=== PATIENT | male | born 1970 | race Caucasian/White ===

== ENCOUNTER 2023-10-27 14:18 | Outpatient (CLI) | payer OTHER, SELFPAY ==
--- NOTE | 2023-10-31 14:38 | WPDPFTINT ---
PFT Procedure Performed PFT Procedure Performed Plethysmography (Lung Vol) Diffusing Cap (DLCO) Flow Vol Loop Spirometry w/o Bronchodil PFT Interpretation Lung volumes were measured with the body plethysmography method. Lung volumes are unremarkable. Spirometry showed normal expiratory flow rates and a normal FEV1 to FVC ratio 79%. No post bronchodilator study was conducted. Lung diffusion capacity is mildly reduced at 67% predicted. The flow-volume loop is unremarkable. Impression: Spirometry, lung volumes within normal range. Mild reduction in lung diffusion capacity.
== END 2023-10-27 14:19 | disposition home or self-care (01) ==
LOC: ANHPFT 14:19
PROVIDERS: PCP Family Medicine; Visit Provider Internal Medicine
DX: R06.00 Dyspnea, unspecified (principal)
CPT/HCPCS: 94375; 94726; 94729

== ENCOUNTER 2023-11-17 14:40 | Outpatient (CLI) | payer OTHER, SELFPAY ==
--- NOTE | 2023-11-17 | ECHO_ITS ---
Patient Info Name: Primitivo Sharma Age: 53 years : 1970 Gender: Male Ht: 71 in Wt: 230 lbs BSA: 2.32 m2 HR: 60 bpm BP: 102 / 85 mmHg Heart Rhythm: Sinus Rhythm Technical Quality: Good Exam Date: 11/17/2023 3:11 PM Exam Location: Echo Lab Patient Status: Outpatient Admit Date: 11/17/2023 Staff Ordering Physician: RustamBulmaro MD Oral And Maxillofacial Pathologist: David Alaniz RDCS Attending Provider: RustamBulmaro MD Exam Type: CA echo doppler color flow Study Info Indications - atheroschoratic heart disease Complete two-dimensional, color flow and Doppler transthoracic echocardiogram is performed. Summary 1. Complete two-dimensional, color flow and Doppler transthoracic echocardiogram is performed. 2. Left ventricular chamber dimension is normal. 3. Left ventricular systolic function is normal, estimated at 60-65%. 4. The left ventricular diastolic function is grade I diastolic dysfunction. 5. E/e' 8 is minimally elevated. 6. There is mild aortic valve sclerosis. 7. There is trace tricuspid valve regurgitation. 8. No pulmonary hypertension, estimated pulmonary arterial systolic pressure is 14 mmHg. Left Ventricle E/e' 8 is minimally elevated. Left ventricular chamber dimension is normal. Left ventricular systolic function is normal, estimated at 60-65%. The left ventricular diastolic function is grade I diastolic dysfunction. Right Ventricle Right ventricular systolic function is normal and with normal TAPSE 2.4 cm. Right ventricular chamber dimension is normal. Left Atria Left atrial chamber dimension is normal. Right Atria Right atrial chamber dimension is normal. Aortic Valve The aortic valve is trileaflet. There is mild aortic valve sclerosis. There is no aortic valve stenosis. There is no aortic valve regurgitation. Pulmonic Valve There is no pulmonic regurgitation. Mitral Valve There is no mitral valve stenosis. There is no mitral valve regurgitation. Tricuspid Valve There is trace tricuspid valve regurgitation. No pulmonary hypertension, estimated pulmonary arterial systolic pressure is 14 mmHg. Pericardium/Pleural There is no pericardial effusion. Inferior Vena Cava Normal inferior vena cava with >50% collapse upon inspiration consistent with normal right atrial pressure, 5 mmHg. Aorta The aortic root size at the sinus of Valsalva is normal. Left Ventricular Outflow Tract Name Value Normal LVOT 2D LVOT Diameter 2.1 cm LVOT Doppler LVOT Peak Gradient 5 mmHg LVOT Mean Gradient 3 mmHg LVOT VTI 24 cm LVOT VTI/AV VTI Ratio 1.0 LVOT Stroke Volume 85 ml LVOT CO 5.6 l/min LVOT CI 2.4 l/min/m2 Pulmonic Valve Name Value Normal PV Doppler PV Peak Gradient 3 mmHg Mitral Valve
== END 2023-11-17 14:41 | disposition home or self-care (01) ==
LOC: ANHCARD 14:41
PROVIDERS: PCP Family Medicine; Visit Provider Internal Medicine
DX: I25.10 Atherosclerotic heart disease of native coronary artery without angina pectoris (principal); I50.30 Unspecified diastolic (congestive) heart failure; I35.8 Other nonrheumatic aortic valve disorders
CPT/HCPCS: 93306

== ENCOUNTER 2024-01-22 09:17 | Outpatient (CLI) | payer OTHER, SELFPAY ==
[2024-01-22 10:24] LABS: Basophils Absolute Auto 0.1 K/mm3 (0.0-0.1); Basophils Percent Auto 0.5 % (0.2-1.2); Eosinophils Absolute Auto 0.2 K/mm3 (0-0.3); Eosinophils Percent Auto 1.7 % (0-4.4); Hematocrit 42.8 % (42.0-52.0); Hemoglobin 14.5 g/dL (14.0-18.0); Immature Granulocyte Absolute 0.04 K/mm3 (0.00-0.031); Immature Granulocyte Percent A 0.4 % (0-0.5); Lymphocytes Absolute Auto 2.25 K/mm3 (0.9-3.2); Lymphocytes Percent Auto 20.5 % (18.3-44.2); Mean Corpuscular HGB Conc 33.9 g/dl (32-36); Mean Corpuscular Hemoglobin 31.8 pg (26-34); Mean Corpuscular Volume 93.9 fl (80-100); Mean Platelet Volume 9.8 fl (7.4-10.4); Monocytes Absolute Auto 0.8 K/mm3 (0.1-0.6); Monocytes Percent Auto 7.1 % (2.6-8.5); Neutrophils Absolute Auto 7.7 K/mm3 (1.3-6.7); Neutrophils Percent Auto 69.8 % (45.5-73.1); Platelet Count Result 281 k/mm3 (150-375); Red Blood Count 4.56 M/mm3 (4.6-6.20); Red Cell Distribution Width 14.4 % (11.5-14.5)
[2024-01-22 10:35] LABS: INR 0.9; Prothrombin Time 13.1 Seconds (11.1-14.7)
[2024-01-22 10:43] LABS: Anion Gap 5 mmol/L (4-12); Blood Urea Nitrogen 9 mg/dL (9-20); Calcium 9.1 mg/dL (8.4-10.2); Carbon Dioxide 22 mmol/L (22-30); Chloride 110 mmol/L (98-107); Cholesterol 98 mg/dL (0-200); Estimated Glomerular Filt Rate > 60; Glucose 129 mg/dL (65-110); HDL Direct 25 mg/dL; Potassium 4.6 mmol/L (3.4-5.0); Sodium 137 mmol/L (137-145); Triglycerides 113 mg/dL (<150)
[2024-01-22 10:54] LABS: LDL Cholesterol Direct 50 mg/dL
== END 2024-01-22 09:18 | disposition home or self-care (01) ==
LOC: ANHLAB 09:19
PROVIDERS: PCP Family Medicine; Visit Provider Internal Medicine Cardiovascular Disease
DX: R53.83 Other fatigue (principal); E78.5 Hyperlipidemia, unspecified; I50.9 Heart failure, unspecified; I21.3 ST elevation (STEMI) myocardial infarction of unspecified site; Z13.6 Encounter for screening for cardiovascular disorders
CPT/HCPCS: 36415; 80048; 80061; 85025; 85610

== ENCOUNTER 2024-07-05 14:12 | Outpatient (CLI) | payer BC, OTHER, SELFPAY ==
--- NOTE | ~2024-07-05 | XR_ITS ---
EXAM: XR knee LT 3V DATE: 07/05/2024 14:40 HISTORY: Left knee pain, unspecified chronicity . COMPARISON: None available. FINDINGS: Normal mineralization. No fracture or dislocation. No lytic or blastic lesion. Mild medial joint space narrowing. Mild tricompartmental osteophytosis. Chondrocalcinosis. Mild quadriceps and p atellar enthesopathy. No erosion or periosteal change. Scattered vascular calcifications. Soft tissue thickening over the patellar tendon, with indistinct tendon margins. IMPRESSION: Mild tricompartmental left knee arthritis, with chondrocalcinosis. Prepatellar soft tissu e swelling and/or patellar tendinopathy. Reviewed, dictated and finalized at location K. IMPRESSION: Mild tricompartmental left knee arthritis, with chondrocalcinosis. Prepatellar soft tissue swelling and/or patellar tendinopathy.
--- OUTSIDE RECORDS SUMMARY | 2024-07-05 14:20 | XMS_ITS | Clinical Summary ---
Author Organization [facility] Address [address] [place] [address] Care Team Providers Care Back Up Machine Operator Name Role Phone Bulmaro Easton MD Primary Care Provider [phone] Social History Tobacco Use Types Packs/Day Years Used Date Smoking Tobacco: Never Assessed Sex and Gender Information Value Date Recorded Sex Assigned at Not on file Legal Sex Male 3:52 PM CDT Gender Identity Not on file Sexual Orientation Not on file Plan of Treatment Health Maintenance Due Date Last Done Comments ASCVD LDL 1970 ASCVD Statin 1970 Colorectal Cancer Screening Colonoscopy (10 Years) 1970 Annual Physical 1973 Hepatitis C 1988 DTaP, Tdap and Td Vaccines ( 1 - Tdap) 1989 Hepatitis B Vaccines (1 of 3 - 19+ 3-dose series) 1989 Pneumococcal Vaccine: 50+ Ye ars (1 of 2 - PCV) 1989 Zoster Vaccines (1 of 2) 2020 COVID-19 Vaccine (2023-2 5 season) 2023 Meningococcal B Vaccine Aged Out No l onger eligible based on patient's age to complete this topic Meningococcal Vaccine Aged Out No ying selena eligible based on patient's age to complete this topic RSV Immunizations Under 20 Months Aged Out No longer eligible based on patient's age to complete this topic Insurance [facility] Care Teams Back Up Machine Operator Relationship Specialty Start Date End Date Bulmaro Easton MD [address] [place] [id number] PCP - General INTERNAL MEDICINE 09/18/23
--- OUTSIDE RECORDS SUMMARY | 2024-07-05 14:20 | XMS_ITS | Continuity of Care Document ---
Author Organization [facility] Address [address] [place] [address] Phone Care Team Providers Care Drywall Taper Name Role Phone Sasha Burt MD Unavailable Unavailable Advance Directives Directive Yes / No Effective Date File Name No Information Encounters Encounter Description Practice Location Reason(s) For Visit Diagnoses Date Provider Providers Copied on Encounter [facility], [address], [place], [place], [id number], tel:[phone] GI SCOPES No Information Javed Baez. [address] [place] [address], [id number], . tel:[phone] Referring Provider: Zac Ray, [address] [place] [address], [place], [address]. tel:[phone] Family History Family Member Type Diagnosis Age At Onset No Information Payers Payer name Insurance type Covered republican ID Authoriza tijose a(s) BCBS INACTIVE OUT OF STATE [id number] 1 Social History Type Description Quantity Date [...]
--- OUTSIDE RECORDS SUMMARY | 2024-07-05 14:20 | XMS_ITS | CONTINUITY OF CARE DOCUMENT ---
Author Name roly biasiena Address Unknown Organization [facility] Address [address] [place] [address] Phone [phone] Care Team Providers Care Insurance Healthcare Consultant Name Role Phone Mikael Brooks MD Unavailable [phone] HONORIO GOMEZ MD Unavailable HONORIO GOMEZ MD Unavailable [phone] PROBLEMS Condition Status Date Provider Notes Cardiology examination active Mikael Louie Shortness of breath active Mikael Brooks MD CHF active Mikael Brooks MD Hx of [place] active Mikael Brooks MD Dyslipidemia active Joey Garciabach Fatigue active Mikael Brooks MD CAD active Mikael Brooks MD ENCOUNTERS Date Type Provider Location Encounter Diag nosis - In-person encounter Office Visit Mikael Brooks MD [facility] CAD - In-person encounter Office Visit Mikael Brooks MD [facility] Fatigue - In-person encounter Office Visit Mikael Brooks MD [facility] Dyslipidemia - In-person encounter Office Visit Mikael Brooks MD [facility] Cardiology examinationShortness of breathCHFHx of [place] VITAL SIGNS Date Observation Value Provider Body Mass Index (Ratio) 31.80 kg/m2 Mikael Brooks MD blood pressure, diastolic 72 mm[Hg] An iyah [place] blood pressure, systolic 90 mm[Hg] Ami guerra [place] oxygen saturation, oximetry 96 % Kitty [place] pulse rate 76 /min Kitty [place] respiratory rate E&M 12 /min Kitty [place] weight E&M 228 [lb_av] Kitty [place] height E&M 71 [in_i] Kitty [place] blood pressure, cuff size regular Jacy guaman [place] Body Mass Index (Ratio) 32.21 kg/m2 Sam Mccarthy blood pressure, diastolic 71 mm[Hg] Caden calla [facility] blood pressure, systolic 91 mm[Hg] [facility]ol [facility], oximetry 97 % Ailin [facility] pulse rate 87 /min [facility] weight E&M 231 [lb_av] Ailin [facility] height E&M 71 [in_i] Ailin [facility] blood pressure, diastolic 68 mm[Hg] Caden yla [facility] blood pressure, systolic 102 mm[Hg] Karol la [facility] blood pressure, cuff size regular Caden roque [facility] oxygen saturation, oximetry 98 % Ailin [facility] pulse rate 72 /min Ailin [facility] height E&M 71 [in_i] Ailin [facility] Body Mass Index (Ratio) 31.94 kg/m2 Artem rey Nachse blood pressure, diastolic 58 mm[Hg] Kalani [facility] blood pressure, systolic 102 mm[Hg] Nancy [employer] weight E&M 229 [lb_av] Lady Torrez pulse rate 84 /min Lady Torrez oxygen saturation, oximetry 97 % Lady Torrez blood pressure, cuff size regular Delfino Torrez blood pressure, diastolic 58 mm[Hg] Delfino Torrez blood pressure, systolic 102 mm[Hg] Marcelo Torrez height E&M 71 [in_i] Lady Torrez respiratory rate E&M 12 /min Lady Torrez ALLERGIES No Known Drug Allergies HISTORY OF MEDICATION USE Medication Status Instructions Dates Provider Indications Com ments ezetimibe 10 mg tablet active TAKE 1 TABLET BY MOUTH EVERY DAY 9 Kitty Richards metoprolol succinate 25 mg tablet extended release 24 hr active TAKE 1 TABLET BY MOUTH EVERY DAY 5 Mikael Brooks MD Entresto 24-26 mg tablet active Take 1 tablet by mouth twice a day 5 Mikael Brooks MD Entresto 49-51 mg tablet completed - 5 Mikael Brooks MD ezetimibe 10 mg tablet completed - 9 Kitty Richards pantoprazole 40 mg tablet,delayed release (DR/EC) active Lady Torrez metoprolol succinate 50 mg tablet extended release 24 hr completed TAKE 1 TABLET BY MOUTH EVERY DAY - 5 Mikael Brooks MD albuterol sulfate 90 mcg/actuation HFA aerosol inhaler active Lady Torrez gabapentin 300 mg capsule active TAKE ONE CAPSULE BY MOUTH THREE TIMES DAILY Lady Torrez clopidogrel 75 mg tablet active Lady Torrez atorvastatin 80 mg tablet active Lady Torrez FUNCTIONAL STATUS Date Observation Value Provider HRA, CV Assess/Plan, Angina (inactive) Management Plan continue current therapy Mikael Brooks MD HRA, CV Assess/Plan, Angina (inactive) Management Plan schedule PCI Mikael Brooks MD HRA, CV Assess/Plan, Angina (inactive) Management Plan continue current therapy Joey Mccarthy HRA, CV Assess/Plan, Angina (inactive) Management Plan continue current therapy Mikael Brooks MD INSURANCE PROVIDERS Payer name Policy type / Coverage type Price red constitution party ID [place] [employer] Commercial insurance [facility] [id number] ADVANCE DIRECTIVES Name Date DISCUSSED - NO DECISION MADE TREATMENT PLAN Date Name Performer Cardiology:This visi t has been a part of the consistent, comprehensive, and ongoing management of the chronic medical condition(s) listed above for the patient. His updated medication list for this problem includes: Ezetimibe 10 Mg Tablet (Ezetimibe) Atorvastatin 80 Mg Tablet (Atorvastatin) Mikael Brooks MD Cardiology:EF normal from Cath The following medications were removed from the medication list: Metoprolol Succinate 50 Mg Tablet Extended Release 24 Hr (Metoprolol succinate) ..... Take 1 tablet by mouth every day His updated medication list for this problem includes: Metoprolol Succinate 25 Mg Tablet Extended Release 24 Hr (Metoprolol succinate) ..... Take 1 tablet by mouth every day Clopidogrel 75 Mg Tablet (Clopidogrel) Mikael Brooks MD Cardiology: T he following medications were removed from the medication list: Metoprolol Succinate 50 Mg Tablet Extended Release 24 Hr (Metoprolol succinate) ..... Take 1 tablet by mouth every day His updated medication list for this problem includes: Metoprolol Succinate 25 Mg Tablet Extended Release 24 Hr (Metoprolol succinate) ..... Take 1 tablet by mouth every day Mikael Brooks MD Cardiology:Diagnosti c angio in Jan 2024 showed significant ISR of previously stented left circ, s/p successful stenting of left circ in Feb 2024. He is feeling much better since the stent and denies any SOB or SOB. T his visit has been a part of the consistent, comprehensive, and ongoing management of the chronic medical condition(s) listed above for the patient. Mikael Brooks MD Cardiology:His updat ed medication list for this problem includes: Metoprolol Succinate 50 Mg Tablet Extended Release 24 Hr (Metoprolol succinate) ..... Take 1 tablet by mouth every day Clopidogrel 75 Mg Tablet (Clopidogrel) Pt still experiencing SOB on exertion. Most recent Echo showed normal LVEF with evidence of diastolic dysfunction Joey Mccarthy Cardiology: H is updated medication list for this problem includes: Ezetimibe 10 Mg Tablet (Ezetimibe) Atorvastatin 80 Mg Tablet (Atorvastatin) This visit has been a part of the consistent, comprehensive, and ongoing management of the chronic medical condition(s) listed above for the patient. Joey Fabio Cardiology:Pt contin ues to complain of SOB. also reports feeling fatigued and sluggish. Most recent stress test showed abnormal imaging in the apical region with a mild perfusion defect, which is small in size, and has complete reversibility and abnormal imaging in the mid inferolateral region with a moderate perfusion defect, which is small in size, and appears with partial reversibility. In view of findings, we will proceed with l+R Heart cath with possible intervention The risks and benefits of the procedure, including but not limited the risk of heart attack, , stroke, bleeding, kidney failure, and loss of limb as well as the alternative of continued medical therapy, stress testing or bypass surgery were discussed with the patient and any present family members and the patient wishes to proceed with cardiac cath and stenting. The patient and family had opportunity to discuss this with us. Written material including informed consent was given out. Joey Fabio Cardiology: H is updated medication list for this problem includes: Ezetimibe 10 Mg Tablet (Ezetimibe) Atorvastatin 80 Mg Tablet (Atorvastatin) Joey Mccarthy Cardiology:Pt still experiencing SOB on exertion PFTs were normal.. Echo showed evidence of diastolic dysfunction. obtain stress test Joey Mccarthy Cardiology:Pt still experiencing SOB on exertion. Most recent Echo showed normal LVEF with evidence of diastolic dysfunction Joey Mccarthy Cardiology: H is updated medication list for this problem includes: Metoprolol Succinate 100 Mg Tablet Extended Release 24 Hr (Metoprolol succinate) Clopidogrel 75 Mg Tablet (Clopidogrel) Mikael Brooks MD Cardiology:Is schedu led for a stress test and Echo at [facility]. W ill f/u after this testing. His updated medication list for this problem includes: Metoprolol Succinate 100 Mg Tablet Extended Release 24 Hr (Metoprolol succinate) Mikael Brooks MD Date Name PROTHROMBIN TIME WIT H INR LIPID PANEL CBC (INCLUDES DIFF/P LT) BASIC METABOLIC PANE L W/EGFR myocardial blood ethan w (PET) Stress Cardiac PET-C T HISTORY OF PROCEDURES Procedure Date Procedure Name Provider Procedure Notes S tatus Complex e/m visit add on Mikael Brooks MD completed Complex e/m visit add on Mikael Brooks MD completed EKG Mikael Brooks MD completed
--- OUTSIDE RECORDS SUMMARY | 2024-07-05 14:20 | XMS_ITS | Data Portability ---
Author Organization [facility] JOSEPHPetty Charles Address [address] [facility] [place] [address] Care Team Providers Care Stock Speculator Name Role Phone HONORIO EASTON Primary Care Provider Assessment Encounter Date Assessment Date Assessment LastModified by Organization Details LastModified Time 08/26/2023 08/26/2023 obtain old records. No change in medications at this time. Obtain CBC CMP lipid PSA lipoprotein a level we will get him seen by Cardiology to establish care in this area PFT's LDCT complete echo we will empirically start albuterol inhaler 2 puffs q.4 hours p.r.n. he states that before when he had his heart attack and stent his angina pattern was left sided neck pain in his left arm went numb his breathing was fine. We will see me back in 3 months [email or web address] Not available 08/31/2023 16:48:58 11/26/2023 11/26/2023 he is working up the cardiopulmonary issues with his line walker. His blood pressure looks well controlled last blood work was reviewed echo and pulmonary function test reviewed quitting tobacco care instructions. Healthy lifestyle care instructions. Return to clinic in 4 months. We will try to get him a colonoscopy once he is cleared by Cardiology [email or web address] Not available 11/29/2023 11:23:01 05/12/2024 05/12/2024 Was continue current therapy healthy lifestyle care instructions last blood work reviewed refuses Prevnar 20 and Tdap colonoscopy can not be done until after July 2024 because of recent stent deployment in his heart and anticoagulation Not available 05/30/2024 13:14:57 Plan of Treatment Reminders Order Date Submit Date Provider Last Modified By Organization Details Last Modified Time Details Appointments ANY 15 2024 10:00A Mariano Easton MD Not available Not available Not available Lab PSA, total, serum or plasma 2023 024 [facility], [address] [place] [address], [place], [address], 08/27/2023 17:10:15 lipoprote in a, qn, serum 2023 024 [facility], [address] [place] [address], [place], [address], 08/27/2023 17:10:12 CMP, serum or plasma 2023 024 [facility], [address] [place] [address], [place], [address], 08/27/2023 17:10:14 lipid panel, serum 2023 024 [facility], [address] [place] [address], [place], [address], 08/27/2023 17:10:13 CBC w/ auto diff 2023 024 [facility], [address] [place] [address], [place], [address], 08/27/2023 17:10:15 Referral cardiolog ist referral 2023 024 [place], [id number] [address] , [facility] [address], [place], [address], 03/31/2024 09:22:28 Procedures None recorded. Surgeries None recorded. Imaging LDCT, chest, for lung cancer screening 2023 024 [facility] (Imaging), [address] [place] [address], [phone], 03/24/2024 10:33:29 US, echocardi ogram 2023 024 [facility] (Imaging), [address] [place] [address], [phone], 11/17/2023 18:31:47 PFT, complete 2023 024 [facility] (Cardiology & Emg), [address], [place], [phone], 10/31/2023 16:06:55 Medication Orders albuterol sulfate HFA 90 mcg/actua tion aerosol inhaler 2023 024 [email or web address] [id number], [address], [place], [place], [id number], 08/26/2023 17:27:24 Patient TargetsNo targets recorded. Patient Instructions Encounter Date Encounter Id Patient Instructions Last Modified By Organization Details Last Modified Time 11/26/2023 [id number] A healthy lifestyle: care instructions [email or web address] Not available 11/26/2023 17:29:31 Quitting Tobacco : Care Instructions [email or web address] Not available 11/26/2023 17:29:31 05/12/2024 [id number] A healthy lifestyle: care instructions [email or web address] Not available 05/12/2024 17:47:19 Reason for Referral Cone Picker Referral for Co ronary atherosclerosis Referring Physician: Honorio Easton, Internal Medicine, Encounter Date: 08/26/2023 Results Created Date Observation Date Name Description Value Unit Range Abnormal Flag Note LastModifiedBy Organization Detail LastModifiedTime 08/26/19 24 08/27/2023 LIPOP ROTEI N (A) lipoprotein (A) 188.7 nmol/ L <75.0 above high normal Note: Value s great er than or equal to 75.0 nmol/ L may indic ate an indep enden t risk facto r for CHD, but must be evalu ated with cauti on when appli ed to non-[place] popul ation s due to the influ ence of jocelyne ic facto rs on Lp(a) acros s ethni citie s. Not Available [facility] ([facility]) [address] [facility], [place], [address], 08/27/2023 17:10:12 08/26/19 24 08/27/2023 LIPID PANEL cholesterol, total 99 mg/dL 100-19 9 below low normal Not Available [facility] ([facility]) [address] [place], [address], 08/27/2023 17:10:13 08/26/19 24 08/27/2023 LIPID PANEL triglyceride s 95 mg/dL 0-149 Not Available [facility] ([facility]) [address] [place], [address], 08/27/2023 17:10:13 08/26/19 24 08/27/2023 LIPID PANEL HDL cholesterol 32 mg/dL >39 below low normal Not Available [facility] ([facility]) [address] [place], [address], 08/27/2023 17:10:13 08/26/19 24 08/27/2023 LIPID PANEL VLDL cholesterol dominique 18 mg/dL 5-40 Not Available [facility] ([facility]) [address] [place], [address], 08/27/2023 17:10:13 08/26/19 24 08/27/2023 LIPID PANEL LDL chol calc ([facility]) 49 mg/dL 0-99 Not Available [facility] ([facility]) [address] [place], [address], 08/27/2023 17:10:13 08/26/19 24 08/27/2023 COMP. METAB OLIC PANEL (14) glucose 118 mg/dL 70-99 above high normal Not Available [facility] ([facility]) [address] [place], [address], 08/27/2023 17:10:14 08/26/19 24 08/27/2023 COMP. METAB OLIC PANEL (14) BUN 8 mg/dL 6-24 Not Available [facility] ([facility]) [address] [place], [address], 08/27/2023 17:10:14 08/26/19 24 08/27/2023 COMP. METAB OLIC PANEL (14) creatinine 0.94 mg/dL 0.76-1 .27 Not Available [facility] ([facility]) [address] [place], [address], 08/27/2023 17:10:14 08/26/19 24 08/27/2023 COMP. METAB OLIC PANEL (14) eGFR 97 mL/mi n/1.7 3 >59 Not Available [facility] ([facility]) [address] [place], [address], 08/27/2023 17:10:14 08/26/19 24 08/27/2023 COMP. METAB OLIC PANEL (14) BUN/creatini ne ratio 9 9-20 Not Available [facility] ([facility]) [address] [facility], [place], [address], 08/27/2023 17:10:14 08/26/19 24 08/27/2023 COMP. METAB OLIC PANEL (14) sodium 142 mmol/ L 134-14 4 Not Available [facility] ([facility]) [address] [facility] [place], [address], 08/27/2023 17:10:14 08/26/19 24 08/27/2023 COMP. METAB OLIC PANEL (14) potassium 4.2 mmol/ L 3.5-5. 2 Not Available [facility] ([facility]) [address] [facility] [place], [address], 08/27/2023 17:10:14 08/26/19 24 08/27/2023 COMP. METAB OLIC PANEL (14) chloride 108 mmol/ L 96-106 above high normal Not Available [facility] ([facility]) [address] [facility] [place], [address], 08/27/2023 17:10:14 08/26/19 24 08/27/2023 COMP. METAB OLIC PANEL (14) carbon dioxide, total 23 mmol/ L 20-29 Not Available [facility] ([facility]) [address], [place], [address], 08/27/2023 17:10:14 08/26/19 24 08/27/2023 COMP. METAB OLIC PANEL (14) calcium 9.1 mg/dL 8.7-10 .2 Not Available [facility] ([facility]) [address], [place], [address], 08/27/2023 17:10:14 08/26/19 24 08/27/2023 COMP. METAB OLIC PANEL (14) protein, total 6.3 g/dL 6.0-8. 5 Not Available [facility] ([facility]) [address], [place], [address], 08/27/2023 17:10:14 08/26/19 24 08/27/2023 COMP. METAB OLIC PANEL (14) albumin 4.1 g/dL 3.8-4. 9 Not Available [facility] ([facility]) [address], [place], [address], 08/27/2023 17:10:14 08/26/19 24 08/27/2023 COMP. METAB OLIC PANEL (14) globulin, total 2.2 g/dL 1.5-4. 5 Not Available [facility] ([facility]) [address] [facility], [place], [address], 08/27/2023 17:10:14 08/26/19 24 08/27/2023 COMP. METAB OLIC PANEL (14) bilirubin, total 0.2 mg/dL 0.0-1. 2 Not Available [facility] ([facility]) [address] [facility], [place], [address], 08/27/2023 17:10:14 08/26/19 24 08/27/2023 COMP. METAB OLIC PANEL (14) alkaline phosphatase 69 IU/L 44-121 Not Available [facility] ([facility]) [address] [facility], [place], [address], 08/27/2023 17:10:14 08/26/19 24 08/27/2023 COMP. METAB OLIC PANEL (14) AST (SGOT) 12 IU/L 0-40 Not Available [facility] ([facility]) [address] [facility], [place], [address], 08/27/2023 17:10:14 08/26/19 24 08/27/2023 COMP. METAB OLIC PANEL (14) ALT (SGPT) 15 IU/L 0-44 Not Available [facility] ([facility]) [address] [facility], [place], [address], 08/27/2023 17:10:14 08/26/19 24 08/27/2023 CBC WITH DIFFE RENTI AL/PL ATELE T WBC 11.0 x10e3 /uL 3.4-10 .8 above high normal Not Available [facility] ([facility]) [address] [place], [address], 08/27/2023 17:10:15 08/26/19 24 08/27/2023 CBC WITH DIFFE RENTI AL/PL ATELE T RBC 4.67 x10e6 /uL 4.14-5 .80 Not Available [facility] ([facility]) [address] [place], [address], 08/27/2023 17:10:15 08/26/19 24 08/27/2023 CBC WITH DIFFE RENTI AL/PL ATELE T hemoglobin 14.9 g/dL 13.0-1 7.7 Not Available [facility] ([facility]) [address] [facility], [place], [address], 08/27/2023 17:10:15 08/26/19 24 08/27/2023 CBC WITH DIFFE RENTI AL/PL ATELE T hematocrit 43.1 % 37.5-5 1.0 Not Available [facility] ([facility]) [address] [facility], [place], [address], 08/27/2023 17:10:15 08/26/19 24 08/27/2023 CBC WITH DIFFE RENTI AL/PL ATELE T MCV 92 fL 79-97 Not Available [facility] ([facility]) [address] [facility], [place], [address], 08/27/2023 17:10:15 08/26/19 24 08/27/2023 CBC WITH DIFFE RENTI AL/PL ATELE T MCH 31.9 pg 26.6-3 3.0 Not Available [facility] ([facility]) [address] [facility], [place], [address], 08/27/2023 17:10:15 08/26/19 24 08/27/2023 CBC WITH DIFFE RENTI AL/PL ATELE T MCHC 34.6 g/dL 31.5-3 5.7 Not Available [facility] ([facility]) [address] [place], [address], 08/27/2023 17:10:15 08/26/19 24 08/27/2023 CBC WITH DIFFE RENTI AL/PL ATELE T RDW 13.0 % 11.6-1 5.4 Not Available [facility] ([facility]) [address] [place], [address], 08/27/2023 17:10:15 08/26/19 24 08/27/2023 CBC WITH DIFFE RENTI AL/PL ATELE T platelets 249 x10e3 /uL 150-45 0 Not Available [facility] ([facility]) [address] [place], [address], 08/27/2023 17:10:15 08/26/19 24 08/27/2023 CBC WITH DIFFE RENTI AL/PL ATELE T neutrophils 59 % notest ab. Not Available [facility] ([facility]) [address] [facility], [place], [address], 08/27/2023 17:10:15 08/26/19 24 08/27/2023 CBC WITH DIFFE RENTI AL/PL ATELE T lymphs 29 % notest ab. Not Available [facility] ([facility]) [address] [facility], [place], [address], 08/27/2023 17:10:15 08/26/19 24 08/27/2023 CBC WITH DIFFE RENTI AL/PL ATELE T monocytes 8 % notest ab. Not Available [facility] ([facility]) [address] [facility], [place], [address], 08/27/2023 17:10:15 08/26/19 24 08/27/2023 CBC WITH DIFFE RENTI AL/PL ATELE T eos 2 % notest ab. Not Available [facility] ([facility]) [address] [facility], [place], [address], 08/27/2023 17:10:15 08/26/19 24 08/27/2023 CBC WITH DIFFE RENTI AL/PL ATELE T basos 1 % notest ab. Not Available [facility] ([facility]) [address] [facility], [place], [address], 08/27/2023 17:10:15 08/26/19 24 08/27/2023 CBC WITH DIFFE RENTI AL/PL ATELE T neutrophils (absolute) 6.6 x10e3 /uL 1.4-7. 0 Not Available [facility] ([facility]) [address] [facility], [place], [address], 08/27/2023 17:10:15 08/26/19 24 08/27/2023 CBC WITH DIFFE RENTI AL/PL ATELE T lymphs (absolute) 3.1 x10e3 /uL 0.7-3. 1 Not Available [facility] ([facility]) [address] [facility], [place], [address], 08/27/2023 17:10:15 08/26/19 24 08/27/2023 CBC WITH DIFFE RENTI AL/PL ATELE T monocytes(ab solute) 0.9 x10e3 /uL 0.1-0. 9 Not Available [facility] ([facility]) [address] [facility], [place], [address], 08/27/2023 17:10:15 08/26/19 24 08/27/2023 CBC WITH DIFFE RENTI AL/PL ATELE T eos (absolute) 0.3 x10e3 /uL 0.0-0. 4 Not Available [facility] ([facility]) [address] [facility], [place], [address], 08/27/2023 17:10:15 08/26/19 24 08/27/2023 CBC WITH DIFFE RENTI AL/PL ATELE T baso (absolute) 0.1 x10e3 /uL 0.0-0. 2 Not Available [facility] ([facility]) [address] [facility], [place], [address], 08/27/2023 17:10:15 08/26/19 24 08/27/2023 CBC WITH DIFFE RENTI AL/PL ATELE T immature granulocytes 1 % notest ab. Not Available [facility] ([facility]) [address] [place], [address], 08/27/2023 17:10:15 08/26/19 24 08/27/2023 CBC WITH DIFFE RENTI AL/PL ATELE T immature grans (abs) 0.1 x10e3 /uL 0.0-0. 1 Not Available [facility] ([facility]) [address] [facility], [place], [address], 08/27/2023 17:10:15 08/26/19 24 08/27/2023 PROST ATE-S PECIF IC AG prostate specific Ag 1.1 NG/mL 0.0-4. 0 Ayla ECLIA metho dolog y. Accor ding to the Ameri can [employer]rolo g[employer] Ass[employer] iatio n, Serum PSA shoul d decre ase and remai n at undet ectab le level s after radic al prost atect rahul. The AUA defin es bioch emica l recur rence as an initi al PSA value 0.2 ng/mL or great er follo wed by a subse quent confi rmato ry PSA value 0.2 ng/mL or great er. Value s obtai che with diffe rent assay metho ds or kits canno t be used inter [place] eably . Resul ts canno t be inter prete d as absol [place] ev[place] nce of the prese nce or absen ce of [facility] se. Not Available [facility] ([facility]) [address] [place], [address], 08/27/2023 17:10:15 07/01/19 25 07/01/2024 BASIC METAB OLIC PANEL (8) glucose 81 mg/dL 70-99 Not Available [facility] ([facility]) [address] [place], [address], 07/01/2024 09:11:51 07/01/19 25 07/01/2024 BASIC METAB OLIC PANEL (8) BUN 9 mg/dL 6-24 Not Available [facility] ([facility]) [address] [place], [address], 07/01/2024 09:11:51 07/01/19 25 07/01/2024 BASIC METAB OLIC PANEL (8) creatinine 1.05 mg/dL 0.76-1 .27 Not Available [facility] ([facility]) [address] [place], [address], 07/01/2024 09:11:51 07/01/19 25 07/01/2024 BASIC METAB OLIC PANEL (8) eGFR 84 mL/mi n/1.7 3 >59 Not Available [facility] ([facility]) [address] [facility] [place], [address], 07/01/2024 09:11:51 07/01/1907/01/2024 BASIC METAB OLIC PANEL (8) BUN/creatini ne ratio 9 9-20 Not Available [facility] ([facility]) [address] [place], [address], 07/01/2024 09:11:51 07/01/19 25 07/01/2024 BASIC METAB OLIC PANEL (8) sodium 141 mmol/ L 134-14 4 Not Available [facility] ([facility] [facility]) [address] [facility] [place], [address], 07/01/2024 09:11:51 07/01/19 25 07/01/2024 BASIC METAB OLIC PANEL (8) potassium 4.2 mmol/ L 3.5-5. 2 Not Available [facility] ([facility]) [address] [facility] [place], [address], 07/01/2024 09:11:51 07/01/1907/01/2024 BASIC METAB OLIC PANEL (8) chloride 108 mmol/ L 96-106 above high normal Not Available [facility] ([facility]) [address] [facility] [place], [address], 07/01/2024 09:11:51 07/01/19 25 07/01/2024 BASIC METAB OLIC PANEL (8) carbon dioxide, total 19 mmol/ L 20-29 below low normal Not Available [facility] ([facility]) [address] [facility] [place], [address], 07/01/2024 09:11:51 07/01/19 25 07/01/2024 BASIC METAB OLIC PANEL (8) calcium 9.2 mg/dL 8.7-10 .2 Not Available [facility] ([facility]) [address] [place], [address], 07/01/2024 09:11:51 10/31/19 24 10/27/2023 PFT, compl ete No observ ation record ed. [address], [place], [address], 11/14/2023 17:01:44 11/17/19 24 11/17/2023 US, echoc ardio gram No observ ation record ed. [place] [id number] [facility] [address], [place], [address], 11/21/2023 14:47:21 12/29/19 24 12/25/2023 PET-C T, myoca rdial perfu luisa, multi ple studi es at rest and stres s No observ ation record ed. [facility] [address] , [place], [address], 03/24/2024 10:28:21 Result Notes None recorded. Problems Name Problem SNOMED Code Status Onset Date Resolution Date Notes Provider Name and Address Organization Details Recorded Time Essential hypertension 09602450 Active 2023 Heather Beasley [place] null, [place] - [facility] 4 16:40:21 Hyperlipidemia 42715639 Active 2023 Heather Beasley [place], [place] [facility] 4 16:40:22 Coronary atherosclerosi s 028623800 Active 2023 Heather Be[place], [place] [facility] 4 16:40:23 Dyspnea 210286313 Active 2023 Heather Beas[place], [place] [facility] 4 16:40:24 Problem Notes None recorded. Procedures Surgical History Date Name Laterality Status Provider Name and Address Organization Details Recorded Time 02/17/19 20 Angioplasty With Stent completed ALICJA Sarabia [facility] 08/26/2023 16:08:07 02/17/18 95 Arthroscopic Surgery completed ALICJA Sarabia [facility] 08/26/2023 16:08:22 02/17/18 95 Knee Surgery completed ALICJA Sarabia - [facility] 08/26/2023 16:08:35 02/17/18 80 Tonsillectomy completed Yesika Oh MA [place] - [facility] 08/26/2023 16:08:43 Imaging Results Imaging Date Name Status LastModified by Organization Details LastModified Time 10/27/2023 PFT, complete completed [address], [place], [address], 11/14/2023 17:01:44 11/17/2023 US, echocardiogram completed [address], [place], [address], 11/21/2023 14:47:21 12/25/2023 PET-CT, myocardial perfusion, multiple studies at rest and stress completed [facility] [address], [place], [address], 03/24/2024 10:28:21 Procedure Notes None recorded. Medical Equipment None Reported. Allergies No known drug allergies Medications Name Sig Start Date Stop Date Status Note LastModified by Organization Details LastModified Time atorvastati n 80 mg tablet TAKE 1 TABLET BY MOUTH EVERYDAY AT BEDTIME active Not Available Not Available No t Available prednisone 10 mg tablet take 6 tablet by mouth daily for 3 days, then 4 tab for 3 days, then 3 tab for 3 days, then 2 tab for 3 days, then 1 tab for 3 days 05/12 completed Not Available Not Available Not Available metoprolol succinate ER 50 mg tablet,exte nded release 24 hr TAKE 1 TABLET BY MOUTH EVERY DAY active Not Available Not Available No t Available metoprolol succinate ER 100 mg tablet,exte nded release 24 hr TAKE 1 TABLET BY MOUTH EVERY DAY 05/12 completed Not Available Not Available Not Available clopidogrel 75 mg tablet TAKE 1 TABLET BY MOUTH DAILY active Not Available Not Available No t Available hydrocodone 10 mg-acetamin ophen 325 mg tablet TAKE 1 TABLET BY MOUTH EVERY 4 HOURS NEEDED FOR MODERATE PAIN 05/12 completed Not Available Not Available Not Available triamcinolo ne acetonide 0.1 % topical cream Apply to affected area 2 times daily. 03/26 /2025 completed Not Available Not Available Not Available tamsulosin 0.4 mg capsule TAKE ONE CAPSULE BY MOUTH DAILY til kidney stone passes 05/12 completed Not Available Not Available Not Available pantoprazol e 40 mg tablet,cici yed release TAKE 1 TABLET BY MOUTH TWICE A DAY active Not Available Not Available No t Available gabapentin 300 mg capsule TAKE ONE CAPSULE BY MOUTH THREE TIMES DAILY 05/12 completed Not Available Not Available Not Available metoprolol succinate ER 25 mg tablet,exte nded release 24 hr TAKE 1 TABLET BY MOUTH EVERY DAY 05/12 completed Not Available Not Available Not Available albuterol sulfate HFA 90 mcg/actuati on aerosol inhaler INHALE 2 PUFFS BY MOUTH EVERY 4 HOURS active Not Available Not Available No t Available betamethaso ne dipropionat e 0.05 % topical ointment APPLY TO THE AFFECTED AREA(S) TWICE DAILY TO RASH ON THE LEG FOR two WEEKS 05/12 completed Not Available Not Available Not Available ezetimibe 10 mg tablet TAKE 1 TABLET BY MOUTH EVERY DAY active Not Available Not Available No t Available Entresto 49 mg-51 mg tablet TAKE 1 TABLET BY MOUTH TWICE DAILY 05/12 completed Not Available Not Available Not Available Entresto 24 mg-26 mg tablet TAKE 1 TABLET BY MOUTH TWICE DAILY active Not Available Not Available No t Available aspirin 81 mg capsule Take 1 capsule every day by oral route. active Not Available Not Available No t Available Vitals Date Recorded Body height Body mass index (BMI) Body weight Heart rate Oxygen saturation Oxygen saturation in Arterial blood by Pulse oximetry Systolic blood pressure Diastolic blood pressure Provider Name and Address Organization Details Last Updated DateTime 4 180.34 cm 32.1 kg/m2 108849. 68 g 77 /min 97 % 97 % 124 mm[Hg] 68 mm[Hg] Yesika Oh [place] - [facility] 4 16:10:57 Date Recorded Body height Body mass index (BMI) Body weight Heart rate Oxygen saturation Oxygen saturation in Arterial blood by Pulse oximetry Systolic blood pressure Diastolic blood pressure Provider Name and Address Organization Details Last Updated DateTime 4 180.34 cm 32 kg/m2 978926. 73 g 79 /min 95 % 95 % 120 mm[Hg] 64 mm[Hg] Yesika Oh [place] [facility] 4 15:53:49 Date Recorded Body height Body mass index (BMI) Body weight Heart rate Oxygen saturation Oxygen saturation in Arterial blood by Pulse oximetry Systolic blood pressure Diastolic blood pressure Provider Name and Address Organization Details Last Updated DateTime 5 180.34 cm 31.9 kg/m2 213098. 65 g 83 /min 95 % 95 % 118 mm[Hg] 78 mm[Hg] Maira Estrada MA [facility] 5 16:07:48 Date Recorded Body height Body mass index (BMI) Body weight Heart rate Oxygen saturation Oxygen saturation in Arterial blood by Pulse oximetry Systolic blood pressure Diastolic blood pressure Provider Name and Address Organization Details Last Updated DateTime 5 180.34 cm 31.9 kg/m2 247682. 22 g 90 /min 95 % 95 % 116 mm[Hg] 64 mm[Hg] Yesika Oh MA [facility] 5 15:54:59 Social History Question Answer Notes LastModified by Organizat ion Details LastModified Time Tobacco Smoking Status Current Every Day Smoker Yesika Oh MA null, [facility] 08/26/2023 16:06:31 Do You Have An Advance Directive? No Information n ot available 08/26/2023 How Many Years Have You Consumed Alcohol? 30 Information not available 08/26/2023 Are You Blind Or Do You Have Difficulty Seeing? Yes Glasses Information n ot available 08/26/2023 What Is Your Level Of Caffeine Consumption? Heavy Information not available 08/26/2023 In The 14 Days Before Symptom Onset, Have You Had Close Contact With A Laboratory-confirm ed COVID-19 While That Case Was Ill? No Information n ot available 08/26/2023 In The 14 Days Before Symptom Onset, Have You Had Close Contact With A Person Who Is Under Investigation For COVID-19 While That Person Was Ill? No Information not available 08/26/2023 Have You Been To An Area Known To Be High Risk For COVID-19? No Information not available 08/26/2023 Are You Deaf Or Do You Have Serious Difficulty Hearing? Yes Information not available 08/26/2023 What Type Of Diet Are You Following? REGULAR Information n ot available 08/26/2023 Are There Any Guns Present In Your Home? No Information not available 08/26/2023 What Was The Date Of Your Most Recent Tobacco Screening? 06/30/2024 Information not available 06/30/2024 What Is Your Current Pack Years? 10packyears Information not available 08/26/2023 What Is Your Relationship Status? Information not available 08/26/2023 Do You Use Your Seat Belt Or Car Seat Routinely? Yes Information not available 08/26/2023 Do You Have Smoke And Carbon Monoxide Detectors In Your Home? Yes Information not available 08/26/2023 How Much Tobacco Do You Smoke? 1 PPD Information not available 08/26/2023 Do You Use Sunscreen Routinely? Yes Information not available 08/26/2023 Has Tobacco Cessation Counseling Been Provided? Yes Information not available 11/26/2023 On What Date Was Tobacco Cessation Counseling Provided? 06/30/2024 Information not available 06/30/2024 How Many Years Have You Smoked Tobacco? 35 Information not available 08/26/2023 Sex: Male Functional Status Question Answer Note LastModified by Organizat ion Details LastModified Time Do you use any illicit or recreational drugs? No Information not available 08/26/2023 Do you or have you ever used any other forms of tobacco or nicotine? No Information not available 08/26/2023 What is your level of alcohol consumption? Moderate Information not available 08/26/2023 Are you currently employed? Yes Information not available 08/26/2023 Are you able to care for yourself? 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 None Information not available 08/26/2023 Mental Status Question Answer Note LastModified by Organization D etails LastModified Time Do you feel stressed (tense, restless, nervous, or anxious, or unable to sleep at night)? [id number] Information not available 08/26/2023 Family History Relationship Description Onset Age of this Age Resolved Age Notes LastModified by Organization Details LastModified Time Father Heart disease mebyma Not available 2023 16:05:34 Father Hypercholest erolemia mebyma Not available 2023 16:05:39 Father Myocardial infarction mebyma Not available 08/25 16:05:53 Medical History Condition Response Blood Clots Y Muscle, Joint, or Bone Problems Y Acid Reflux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
--- OUTSIDE RECORDS SUMMARY | 2024-07-05 14:20 | XMS_ITS | Encounter Summary ---
Author Organization [facility] Address [address] [place] [address] Care Team Providers Care Finished Goods Stock Clerk Name Role Phone Deejay Stern MD Primary Care Provid er Encounter Details Date Type Department Care Team (Latest Contact Info) Description 12/15/2002 Outpatient Historical [facility] JONG Le, [place] [address] [place] [address] CALCULUS OF KIDNEY (Primary Dx) Social History Tobacco Use Types Packs/Day Years Used Date Smoking Tobacco: Never Assessed Sex and Gender Information Value Date Recorded Sex Assigned at Not on file Legal Sex Male 1:15 AM GIFT MANAGER Gender Identity Not on file Sexual Orientation Not on file documented as of this encounter Plan of Treatment Not on file documented as of this encounter Visit Diagnoses Diagnosis Calculus of kidney- Primary documented in this encounter Care Teams Finished Goods Stock Clerk Relationship Specialty [place] [address] [facility] [address] [place] [phone] PCP - General Family Practice 04/28/23 09/03/23 documented as of this encounter
== END 2024-07-05 14:13 | disposition home or self-care (01) ==
PROVIDERS: PCP Internal Medicine; Visit Provider Internal Medicine
DX: M17.12 Unilateral primary osteoarthritis, left knee (principal); M11.262 Other chondrocalcinosis, left knee; Z98.890 Other specified postprocedural states; M25.462 Effusion, left knee; M76.52 Patellar tendinitis, left knee
CPT/HCPCS: 73562

== ENCOUNTER 2024-08-10 08:15 | Outpatient (CLI) | payer BC, OTHER, SELFPAY ==
[2024-08-10 08:45] LABS: Basophils Absolute Auto 0.1 K/mm3 (0.0-0.1); Basophils Percent Auto 0.6 % (0.2-1.2); Eosinophils Absolute Auto 0.2 K/mm3 (0-0.3); Eosinophils Percent Auto 1.4 % (0-4.4); Hemoglobin 14.2 g/dL (14.0-18.0); Immature Granulocyte Absolute 0.06 K/mm3 (0.00-0.031); Immature Granulocyte Percent A 0.4 % (0-0.5); Lymphocytes Absolute Auto 3.34 K/mm3 (0.9-3.2); Mean Corpuscular Hemoglobin 30.7 pg (26-34); Mean Corpuscular Volume 92.9 fl (80-100); Mean Platelet Volume 9.6 fl (7.4-10.4); Monocytes Absolute Auto 0.9 K/mm3 (0.1-0.6); Monocytes Percent Auto 6.3 % (2.6-8.5); Neutrophils Absolute Auto 9.3 K/mm3 (1.3-6.7); Neutrophils Percent Auto 67.3 % (45.5-73.1); Platelet Count Result 231 k/mm3 (150-375); Red Blood Count 4.63 M/mm3 (4.6-6.20); Red Cell Distribution Width 13.9 % (11.5-14.5); White Blood Count 13.9 K/mm3 (4.5-10.0)
[2024-08-10 08:55] LABS: Prothrombin Time 13.4 Seconds (11.1-14.7)
[2024-08-10 09:12] LABS: Anion Gap 9 mmol/L (4-12); Blood Urea Nitrogen 7 mg/dL (9-20); Calcium 9.3 mg/dL (8.4-10.2); Carbon Dioxide 23 mmol/L (22-30); Chloride 107 mmol/L (98-107); Cholesterol 94 mg/dL (0-200); Estimated Glomerular Filt Rate > 60; Glucose 82 mg/dL (65-110); HDL Direct 30 mg/dL; Potassium 3.6 mmol/L (3.4-5.0); Sodium 139 mmol/L (137-145); Triglycerides 86 mg/dL (<150)
[2024-08-10 09:22] LABS: LDL Cholesterol Direct 43 mg/dL
== END 2024-08-10 08:16 | disposition home or self-care (01) ==
LOC: ANHLAB 08:18
PROVIDERS: PCP Internal Medicine; Visit Provider Internal Medicine Cardiovascular Disease
DX: I25.10 Atherosclerotic heart disease of native coronary artery without angina pectoris (principal); R53.83 Other fatigue; E78.5 Hyperlipidemia, unspecified; I50.9 Heart failure, unspecified; R06.02 Shortness of breath; Z13.6 Encounter for screening for cardiovascular disorders
CPT/HCPCS: 36415; 80048; 80061; 85025; 85610

== ENCOUNTER 2024-09-22 09:18 | Outpatient (CLI) | payer BC, OTHER, SELFPAY ==
--- NOTE | ~2024-09-22 | CT_ITS ---
EXAMINATION: CT abdomen pelvis wo/w con DATE: 09/22/2024 10:04 INDICATION: Generalized abdominal pain TECHNIQUE: Computed tomography (CT) of the abdomen and pelvis was performed without and with 100 cc O mnipaque 350 intravenous contrast. The dose-length product was 808.30 mGy-cm. Automated exposure cont rol and iterative reconstruction technique were employed. COMPARISON: CT dated 04/11/2013 FINDINGS: Lung bases unremarkable. Heart size normal. No significant pleural or pericardial effusion. Status post cholecystectomy. The liver, spleen, adrenal glands are unremarkable. There are nonobstru cting bilateral renal stones. There is a right mid ureteral stone at the sacral level measuring 4 mm. Status post cholecystectomy. No free air or free fluid. No significant vascular abnormality. No lymp hadenopathy. IMPRESSION: 1. Right mid ureteral stone at the sacral level with mild hydronephrosis. 2: Nonobstructing bilateral nephrolithiasis. Reviewed, dictated and finalized at location A.
--- OUTSIDE RECORDS SUMMARY | 2024-09-22 09:31 | XMS_ITS | Clinical Summary ---
Author Organization [facility] Address [address] [place] [address] Care Team Providers Care Retarder Operator Name Role Phone Bulmaro Easton MD Primary Care Provider [phone] Social History Tobacco Use Types Packs/Day Years Used Date Smoking Tobacco: Never Assessed Sex and Gender Information Value Date Recorded Sex Assigned at Not on file Legal Sex Male 3:52 PM CDT Gender Identity Not on file Sexual Orientation Not on file Plan of Treatment Health Maintenance Due Date Last Done Comments Colorectal Cancer Screening Colonoscopy (10 Years) 1970 Annual Physical 1973 Hepatitis C 1988 DTaP, Tdap and Td Vaccines ( 1 - Tdap) 1989 Hepatitis B Vaccines (1 of 3 - 19+ 3-dose series) 1989 Pneumococcal Vaccine: 50+ Ye ars (1 of 1 - PCV) 2020 Zoster Vaccines (1 of 2) 2020 COVID-19 Vaccine ( - 2023-2 5 season) 2023 Meningococcal B Vaccine Aged Out No l onger eligible based on patient's age to complete this topic Meningococcal Vaccine Aged Out No ying selena eligible based on patient's age to complete this topic RSV Immunizations Under 20 Months Aged Out No longer eligible based on patient's age to complete this topic Insurance [facility] Care Teams Retarder Operator Relationship Specialty [place] [address] [place] [phone] PCP - General INTERNAL MEDICINE 09/18/23
--- OUTSIDE RECORDS SUMMARY | 2024-09-22 09:31 | XMS_ITS | Encounter Summary ---
Author Organization [facility] Address [address] [place] [address] Care Team Providers Care Construction Cost Estimator Name Role Phone Deejay Stern MD Primary Care Provid er Encounter Details Date Type Department Care Team (Latest Contact Info) Description 12/15/2002 Outpatient Historical [facility] JONG Le, [place] [address] [place] [address] CALCULUS OF KIDNEY (Primary Dx) Social History Tobacco Use Types Packs/Day Years Used Date Smoking Tobacco: Never Assessed Sex and Gender Information Value Date Recorded Sex Assigned at Not on file Legal Sex Male 1:15 AM CURATOR OF MANUSCRIPTS Gender Identity Not on file Sexual Orientation Not on file documented as of this encounter Plan of Treatment Not on file documented as of this encounter Visit Diagnoses Diagnosis Calculus of kidney- Primary documented in this encounter Care Teams Construction Cost Estimator Relationship Specialty [place] [address] [facility] [address] [place] [phone] PCP - General Family Practice 04/28/23 09/03/23 documented as of this encounter
--- OUTSIDE RECORDS SUMMARY | 2024-09-22 09:31 | XMS_ITS | Clinical Summary ---
Author Organization [facility] Address [address] Vazquezn: [place] [address] Care Team Providers Care Relocation Services Specialist Name Role Phone Unavailable Primary Care Provider [...] 1 1 Active naloxone (NARCAN) 4 mg/spray [place], Non-Aerosol EMERGENCY USE ONLY: Administer 1 spray [...] 24 hour tabletIndication s:Coronary artery disease of [place] artery of [place] heart with stable angina pectoris Take 1 [...] Date Diagnosed Date Coronary artery disease involving [place] coronar y artery 04/22/2019 Assessment & Plan (03/03/2021 2:41 PM DOG LICENSE OFFICER SUPERVISOR): Stable. Cardio managed Ischemic cardiomyopathy 04/22/2019 [facility] [...] Encounters Date Type Department Care Team Description 09/09/2024 [facility] [address] [place] [address] Bessy Parham, 09/01/2024 External Device Data STL ABSTRACTION Provider, Abstract 08/31/2024 External Device Data STL ABSTRACTION Provider, Abstract 08/24/2024 External Device Data STL ABSTRACTION Provider, Abstract [...] drink = 0.6 oz pur e alcohol) Sex and Gender Information Value Date Recorded Sex Assigned at Not on file Legal Sex Male 1:15 AM DOG LICENSE OFFICER SUPERVISOR Gender Identity Not on file Sexual Orientation Not on file Last Filed Vital Signs Vital Sign Reading Time Taken Comments Blood Pressure 132/82 03/13/2023 8:01 AM DOG LICENSE OFFICER SUPERVISOR Pulse 77 03/13/2023 8:01 AM DOG LICENSE OFFICER SUPERVISOR Temperature 36.3 C (97.4 F) 03/13/2023 8:01 AM DOG LICENSE OFFICER SUPERVISOR Respiratory Rate 18 12/25/2022 10:56 AM DOG LICENSE OFFICER SUPERVISOR Oxygen Saturation 96% 03/13/2023 8:01 AM DOG LICENSE OFFICER SUPERVISOR Inhaled Oxygen Concentration - - Weight 116.6 kg (257 lb) 03/13/2023 8:01 AM DOG LICENSE OFFICER SUPERVISOR Height 180.3 cm (5' 11) 03/13/2023 8:01 AM DOG LICENSE OFFICER SUPERVISOR Body Mass Index 35.84 03/13/2023 8:01 AM DOG LICENSE OFFICER SUPERVISOR Plan of Treatment Health Maintenance Due Date Last Done Comments DTAP/TDAP/TD VACCINES (1 - Tdap) 1989 FIT-DNA Q 3 years 05/07/2015 FIT/FOBT Q 1 year 05/07/2015 Flex Sig/CT Colonography Q 5 years 05/07/2015 ZOSTER VACCINE (1 of 2) 2020 COLORECTAL SCREENING 02/06/2022 02/06/2021, 02/07/20 Colorectal Cancer Screening 02/06/2022 Preventative Visit- Commercial 02/18/2024 INFLUENZA VACCINE (#1) 2024 2, 11/30/2020, 12/03/2019, Additional history exists HEPATITIS B VACCINES (1 of 3 - 19+ 3-dose series) 12/24/2032 Postponed from 1989 (Patient Refused) Medical Devices Implanted Type Area Civil Engineering Draftsperson Device Identifier Shelf Expiration Date Model / Serial / Lot Closure Perclose Proglide [id number] - [id number] Implanted:06/2019 (Quantity not on file) Closure Device Right: Groin GREEN- VASC DEVICE 01/16/2021 [id number] / / [id number] Stent Synergy Mr 3.5x32mm Drug Elut [id number] - [id number] Implanted:Qty : 1 on 04/22/2019 by Bessy Parham DO Stent Left: Heart [employer] 11/11/2020 [id number] / / [id number] Procedures Procedure Name Priority Date/Time Associated Diagnosis Comments COLONOSCOPY REPORT 02/06/2021 9: 54 AM DOG LICENSE OFFICER SUPERVISOR from Last 3 Months or Most Recently Relevant to Health Maintenance Results * COLONOSCOPY REPORT (02/06/2021 9:54 AM DOG LICENSE OFFICER SUPERVISOR) Narrative Procedure Note Garcia Talley MD - 02/06/2021 9:53 AM CST [facility] Patient Name: Primitivo Sharma Procedure Date: 02/06/2021 Date of : [...] 9:50:53 AM Scope Out: 9:51:41 AM [address] [place], [place] Garcia Talley MD GI PROCEDURE ORDERABLES Final Result from Last 3 Months or Most Recently Relevant to Health Maintenance Insurance RX PEOPLES PLANS (INTERNAL) [facility] Internal Plans Advance Directives For more information, please contact: [phone] * Full Code (Latest Code Status on File) Date Activated Date Inactivated Comments 02/06/2021 8:54 AM 02/06/2021 12:46 PM
[2024-09-22 09:57] LABS: Hematocrit 47.7 % (42.0-52.0); Hemoglobin 15.5 g/dL (14.0-18.0); Immature Granulocyte Percent A 0.4 % (0-0.5); Lymphocytes Absolute Auto 2.42 K/mm3 (0.9-3.2); Mean Corpuscular HGB Conc 32.5 g/dl (32-36); Mean Corpuscular Hemoglobin 30.9 pg (26-34); Mean Corpuscular Volume 95.0 fl (80-100); Nucleated Red Blood Cells Absolute Auto 0.000 K/mm3 (0.0-0.012); Nucleated Red Blood Cells Perc 0.0 % (0.0-0.2); Platelet Count Result 254 k/mm3 (150-375); Red Blood Count 5.02 M/mm3 (4.6-6.20); White Blood Count 10.6 K/mm3 (4.5-10.0)
[2024-09-22 10:00] LABS: Estimated Glomerular Filt Rate > 60
[2024-09-22 10:26] LABS: Alanine Aminotransferase 25 U/L (6-50); Albumin Level 3.8 g/dL (3.5-5.1); Alkaline Phosphatase 60 U/L (38-126); Anion Gap 9 mmol/L (4-12); Aspartate Amino Transferase 25 U/L (17-59); Bilirubin,Total 0.4 mg/dL (0.2-1.3); Blood Urea Nitrogen 7 mg/dL (9-20); Calcium 9.4 mg/dL (8.4-10.2); Carbon Dioxide 23 mmol/L (22-30); Chloride 109 mmol/L (98-107); Estimated Glomerular Filt Rate > 60; Glucose 86 mg/dL (65-110); Potassium 4.2 mmol/L (3.4-5.0); Sodium 141 mmol/L (137-145); Total Protein 6.8 g/dL (6.3-8.2)
[2024-09-22 10:37] LABS: Add Urine Microscopic? YES; Appearance Urine Clear (Clear); Glucose Urine UA Negative (Negative); Leukocyte Esterase Ur 1+ LEU/UL (Negative); Need Manual Microscopic Reviewed; Nitrate Urine Negative (Negative); Non Pathogenic Casts 0-2; Specific Grav Ur 1.021 (1.001-1.035)
== END 2024-09-22 09:19 | disposition home or self-care (01) ==
LOC: ANHIMG 09:20
PROVIDERS: PCP Internal Medicine; Visit Provider Internal Medicine
DX: N13.2 Hydronephrosis with renal and ureteral calculous obstruction (principal); R82.90 Unspecified abnormal findings in urine
CPT/HCPCS: 36415; 74178; 80053; 81001; 85025; 87086; Q9967

== ENCOUNTER 2024-10-04 09:01 | Outpatient (CLI) | payer BC, OTHER, SELFPAY ==
--- NOTE | ~2024-10-04 | XR_ITS ---
EXAM/PROCEDURE: XR abdomen/kub 1V - 10/04/2024 9:10 CDT HISTORY: 54 years old Male with calculus of kidney; LLQ RLQ ABDOMINAL TIGHTNESS x3 WEEKS COMPARISON: None available. TECHNIQUE: AP view(s) of the abdomen. FINDINGS: The bowel gas pattern is normal. There is no evidence for obstruction. Cholecystectomy clips are see n. Moderate stool burden. No free intraperitoneal air is identified on this supine radiograph. The visualized soft tissue shadows are unremarkable. No gross bony abnormalities are seen. Visualized portions of lung bases are clear. IMPRESSION: No large radiopaque calculus seen. Reviewed, dictated and finalized at location A.
--- OUTSIDE RECORDS SUMMARY | 2024-10-04 09:23 | XMS_ITS | Clinical Summary ---
Author Organization [facility] Address [address] Vazquezn: [place] [address] Care Team Providers Care Professor Of Apologetics Name Role Phone Unavailable Primary Care Provider [...] 1 1 Active naloxone (NARCAN) 4 mg/spray [place], Non-Aerosol EMERGENCY USE ONLY: Administer 1 spray [...] 24 hour tabletIndication s:Coronary artery disease of [place] artery of [place] heart with stable angina pectoris Take 1 [...] Date Diagnosed Date Coronary artery disease involving [place] coronar y artery 04/22/2019 Assessment & Plan (03/03/2021 2:41 PM THERMAL SURFACING MACHINE OPERATOR): Stable. Cardio managed Ischemic cardiomyopathy 04/22/2019 [facility] [...] Date Type Department Care Team Description 09/09/2024 [facility] [address] [place] [address] Bessy Parham, 09/01/2024 External Device [...] on file Legal Sex Male 1:15 AM THERMAL SURFACING MACHINE OPERATOR Gender Identity Not on file Sexual Orientation Not on file Last Filed Vital Signs Vital Sign Reading Time Taken Comments Blood Pressure 132/82 03/13/2023 8:01 AM THERMAL SURFACING MACHINE OPERATOR Pulse 77 03/13/2023 8:01 AM THERMAL SURFACING MACHINE OPERATOR Temperature 36.3 C (97.4 F) 03/13/2023 8:01 AM THERMAL SURFACING MACHINE OPERATOR Respiratory Rate 18 12/25/2022 10:56 AM THERMAL SURFACING MACHINE OPERATOR Oxygen Saturation 96% 03/13/2023 8:01 AM THERMAL SURFACING MACHINE OPERATOR Inhaled Oxygen Concentration - - Weight 116.6 kg (257 lb) 03/13/2023 8:01 AM THERMAL SURFACING MACHINE OPERATOR Height 180.3 cm (5' 11) 03/13/2023 8:01 AM THERMAL SURFACING MACHINE OPERATOR Body Mass Index 35.84 03/13/2023 8:01 AM THERMAL SURFACING MACHINE OPERATOR Plan of Treatment Health Maintenance Due Date Last Done Comments DTAP/TDAP/TD VACCINES (1 - Tdap) 1989 FIT-DNA Q 3 years 05/07/2015 FIT/FOBT Q 1 year 05/07/2015 Flex Sig/CT Colonography Q 5 years 05/07/2015 ZOSTER VACCINE (1 of 2) 2020 COLORECTAL SCREENING 02/06/2022 02/06/2021, 02/07/20 Colorectal Cancer Screening 02/06/2022 INFLUENZA VACCINE (#1) 2024 , 11/30/2020, 12/03/2019, Additional history exists HEPATITIS B VACCINES (1 of 3 - 19+ 3-dose series) 12/24/2032 Postponed from 1989 (Patient Refused) Medical Devices Implanted Type Area Kettle Coordinator Device Identifier Shelf Expiration Date Model / Serial / Lot Closure Perclose Proglide [id number] - [id number] Implanted:06/2019 (Quantity not on file) Closure Device Right: Groin GREEN- VASC DEVICE 01/16/2021 [id number] / / [id number] Stent Synergy Mr 3.5x32mm Drug Elut [id number] - [id number] Implanted:Qty : 1 on 04/22/2019 by Bessy Parham DO Stent Left: Heart [employer] JARRELL 11/11/2020 [id number] / / [id number] Procedures Procedure Name Priority Date/Time Associated Diagnosis Comments COLONOSCOPY REPORT 02/06/2021 9: 54 AM THERMAL SURFACING MACHINE OPERATOR from Last 3 Months or Most Recently Relevant to Health Maintenance Results * COLONOSCOPY REPORT (02/06/2021 9:54 AM THERMAL SURFACING MACHINE OPERATOR) Narrative Procedure Note Garcia Talley MD - 02/06/2021 9:53 AM CST [facility] GI Patient Name: Primitivo Sharma Procedure Date: [...] In: 9:50:53 AM Scope Out: 9:51:41 AM [address] [place] Garcia Talley MD GI PROCEDURE ORDERABLES Final Result from Last 3 Months or Most Recently Relevant to Health Maintenance Insurance [employer] (INTERNAL) [facility] Internal Plans Advance Directives For more information, please contact: [phone] * Full Code (Latest Code Status on File) Date Activated Date Inactivated Comments 02/06/2021 8:54 AM 02/06/2021 12:46 PM
--- OUTSIDE RECORDS SUMMARY | 2024-10-04 09:24 | XMS_ITS | Continuity of Care Document ---
Author Organization [facility] [employer] Address [address] [place] [address] Phone Care Team Providers Care Laborer/Grade Check Name Role Phone Sasha Burt MD Unavailable Unavailable Advance Directives Directive Yes / No Effective Date File Name No Information Encounters Encounter Description Practice Location Reason(s) For Visit Diagnoses Date Provider Providers Copied on Encounter [facility], [address], [place], [place], [id number], tel:[phone] GI SC[facility]ES No Information Javed Baez. [address] [place] [address], [id number], . tel:[phone] Referring Provider: Zac Ray, [address] [place] [address], [place], [address]. tel:[phone] Family History Family Member Type Diagnosis Age At Onset No Information Payers Payer name Insurance type Covered constitution party ID Authoriza tijose a(s) BCBS INACTIVE OUT OF STATE [id number] 1 Social History Type Description Quantity Date [...]
--- OUTSIDE RECORDS SUMMARY | 2024-10-04 09:24 | XMS_ITS | Encounter Summary ---
Author Organization [facility] Address [address] [place] [address] Care Team Providers Care Rooter Operator Name Role Phone Deejay Stern MD Primary Care Provid er Encounter Details Date Type Department Care Team (Latest Contact Info) Description 12/15/2002 Outpatient Historical [facility] JONG Le, [place] [address] [place] [address] CALCULUS OF KIDNEY (Primary Dx) Social History Tobacco Use Types Packs/Day Years Used Date Smoking Tobacco: Never Assessed Sex and Gender Information Value Date Recorded Sex Assigned at Not on file Legal Sex Male 1:15 AM OPERATIONS SUPPORT SPECIALIST Gender Identity Not on file Sexual Orientation Not on file documented as of this encounter Plan of Treatment Not on file documented as of this encounter Visit Diagnoses Diagnosis Calculus of kidney- Primary documented in this encounter Care Teams Rooter Operator Relationship Specialty [place] [address] [facility] [address] [place] [phone] PCP - General Family Practice 04/28/23 09/03/23 documented as of this encounter
== END 2024-10-04 09:02 | disposition home or self-care (01) ==
LOC: ANHIMG 09:05
PROVIDERS: PCP Internal Medicine; Visit Provider Urology
DX: N20.0 Calculus of kidney (principal); Z90.49 Acquired absence of other specified parts of digestive tract
CPT/HCPCS: 74018

== ENCOUNTER 2024-10-06 09:41 | Outpatient (CLI) | payer BC, OTHER, SELFPAY ==
--- OUTSIDE RECORDS SUMMARY | 2013-10-24 19:00 | XMS_ITS | Continuity of Care Document ---
Author Organization [facility] Address [address] [place] [address] Phone Care Team Providers Care Geotechnical Engineer Name Role Phone Sasha Burt MD Unavailable Unavailable Advance Directives Directive Yes / No Effective Date File Name No Information Encounters Encounter Description Practice Location Reason(s) For Visit Diagnoses Date Provider Providers Copied on Encounter [facility], [address], [place], [place], [id number], tel:[phone] GI SCOPES No Information Javed Baez. [address] [place] [address], [id number], . tel:[phone] Referring Provider: Zac Ray, [address] [place] [address], [place], [address]. tel:[phone] Family History Family Member Type Diagnosis Age At Onset No Information Payers Payer name Insurance type Covered democrat ID Authoriza tijose a(s) BCBS INACTIVE OUT OF STATE [id number] 1 Social History Type Description Quantity Date Captured Comments Sex Male Smoking Status No Information Chief Complaint And Reason For Visit No Information Reason For Referral Reason For Referral No Information History Of Present Illness Encounter Date Complaint History Of Prese nt Illness No Information Functional Status Date Functional Assessmen t No Information Instructions Date Instruction Additional Infor mation No Information Assessments Type Assessment Date No Information Patient Care Teams Name Effective Dates (start - stop) Status Members No Information
--- NOTE | ~2024-10-06 | CT_ITS ---
EXAM: CT abdomen pelvis wo con - 10/06/2024 9:50 CDT History: 54 years old Male with Calculus of kidney TECHNIQUE: Multidetector CT of the abdomen and pelvis without contrast. Coronal and sagittal reformats were also provided for review. Automatic exposure control was used for this study. CONTRAST: 100 cc of Optiray 350 was used for this study. COMPARISON: 09/22/24. FINDINGS: VISUALIZED CHEST: Visualized lungs are clear. ABDOMEN and PELVIS: LIVER: Within normal limits. GALLBLADDER: Postcholecystectomy. BILE DUCTS: No dilatation. SPLEEN: Within normal limits. PANCREAS: Within normal limits. ADRENAL GLANDS: Within normal limits. KIDNEYS and URETERS: 6 mm calculus in the right distal ureter causing mild hydroureteronephrosis. 3 mm calculus in the left distal ureter causing mild hydroureteronephrosis. Multiple additional bilateral nephrolithiasis. URINARY BLADDER: Within normal limits. STOMACH and BOWEL: No abnormal bowel wall thickening. No obstruction. Colonic diverticulosis, without diverticulitis. Fatty infiltration of the terminal ileum and cecum, likely sequelae of chronic inflammation. REPRODUCTIVE ORGANS: Within normal limits. MESENTERY/PERITONEAL CAVITY: No free fluid or pneumoperitoneum. LYMPH NODES: No abdominal or pelvic lymphadenopathy. ABDOMINAL WALL: Within normal limits. VASCULATURE: Within normal limits. MUSCULOSKELETAL: Multilevel degenerative changes of the spine. IMPRESSION: 6 mm calculus in the right distal ureter causing mild hydroureteronephrosis. 3 mm calculus in the left distal ureter causing mild hydroureteronephrosis. Reviewed, dictated and finalized at location A.
--- OUTSIDE RECORDS SUMMARY | 2024-10-06 09:48 | XMS_ITS | Clinical Summary ---
Author Organization [facility] Address [address] Vazquezn: [place] [address] Care Team Providers Care Electrical Technician Instructor Name Role Phone Unavailable Primary Care Provider [...] 1 1 Active naloxone (NARCAN) 4 mg/spray [place], Non-Aerosol EMERGENCY USE ONLY: Administer 1 spray [...] 24 hour tabletIndication s:Coronary artery disease of [place] artery of [place] heart with stable angina pectoris Take 1 [...] Date Diagnosed Date Coronary artery disease involving [place] coronar y artery 04/22/2019 Assessment & Plan (03/03/2021 2:41 PM DATE PULLER): Stable. Cardio managed Ischemic cardiomyopathy 04/22/2019 [facility] [...] Date Type Department Care Team Description 09/09/2024 [facility] [address] [place] [address] Bessy Parham, 09/01/2024 External Device [...] on file Legal Sex Male 1:15 AM DATE PULLER Gender Identity Not on file Sexual Orientation Not on file Last Filed Vital Signs Vital Sign Reading Time Taken Comments Blood Pressure 132/82 03/13/2023 8:01 AM DATE PULLER Pulse 77 03/13/2023 8:01 AM DATE PULLER Temperature 36.3 C (97.4 F) 03/13/2023 8:01 AM DATE PULLER Respiratory Rate 18 12/25/2022 10:56 AM DATE PULLER Oxygen Saturation 96% 03/13/2023 8:01 AM DATE PULLER Inhaled Oxygen Concentration - - Weight 116.6 kg (257 lb) 03/13/2023 8:01 AM DATE PULLER Height 180.3 cm (5' 11) 03/13/2023 8:01 AM DATE PULLER Body Mass Index 35.84 03/13/2023 8:01 AM DATE PULLER Plan of Treatment Health Maintenance Due Date [...] (Patient Refused) Medical Devices Implanted Type Area Deckhand Shrimp Boat Device Identifier Shelf Expiration Date Model / Serial / Lot Closure Perclose Proglide [id number] - [id number] Implanted:06/2019 (Quantity not on file) Closure Device Right: Groin GREEN- VASC DEVICE 01/16/2021 [id number] / / [id number] Stent Synergy Mr 3.5x32mm Drug Elut [id number] - [id number] Implanted:Qty : 1 on 04/22/2019 by Bessy Parham DO Stent Left: Heart [employer] JARRELL 11/11/2020 [id number] / / [id number] Procedures Procedure Name Priority Date/Time Associated Diagnosis Comments COLONOSCOPY REPORT 02/06/2021 9: 54 AM DATE PULLER from Last 3 Months or Most Recently Relevant to Health Maintenance Results * COLONOSCOPY REPORT (02/06/2021 9:54 AM DATE PULLER) Narrative Procedure Note Garcia Talley MD - 02/06/2021 9:53 AM CST [facility] GI Patient Name: Primitivo Sharma Procedure [...] In: 9:50:53 AM Scope Out: 9:51:41 AM [address], [place] Garcia Talley MD GI PROCEDURE ORDERABLES Final Result from Last 3 Months or Most Recently Relevant to Health Maintenance Insurance [employer] (INTERNAL) [facility] Plans Advance Directives For more information, please contact: [phone] * Full Code (Latest Code Status on File) Date Activated Date Inactivated Comments 02/06/2021 8:54 AM 02/06/2021 12:46 PM
--- OUTSIDE RECORDS SUMMARY | 2024-10-06 09:48 | XMS_ITS | Encounter Summary ---
Author Organization [facility] Address [address] [place] [address] Care Team Providers Care Salesperson Women'S Dresses Name Role Phone Deejay Stern MD Primary Care Provid er Encounter Details Date Type Department Care Team (Latest Contact Info) Description 12/15/2002 Outpatient Historical [facility] JONG Le, [place] [address] [place] [address] CALCULUS OF KIDNEY (Primary Dx) Social History Tobacco Use Types Packs/Day Years Used Date Smoking Tobacco: Never Assessed Sex and Gender Information Value Date Recorded Sex Assigned at Not on file Legal Sex Male 1:15 AM WELFARE ADVISER Gender Identity Not on file Sexual Orientation Not on file documented as of this encounter Plan of Treatment Not on file documented as of this encounter Visit Diagnoses Diagnosis Calculus of kidney- Primary documented in this encounter Care Teams Salesperson Women'S Dresses Relationship Specialty [place] [address] [facility] [address] [place] [phone] PCP - General Family Practice 04/28/23 09/03/23 documented as of this encounter
--- OUTSIDE RECORDS SUMMARY | 2024-10-06 09:48 | XMS_ITS | Clinical Summary ---
Author Organization [facility] Address [address] [place] [address] Care Team Providers Care Extractor Operator Name Role Phone Bulmaro Easton MD Primary Care Provider [phone] Social History Tobacco Use Types Packs/Day Years [...] patient's age to complete this topic Insurance [facility] Care Teams Extractor Operator Relationship Specialty Start [place] [address] [place] [address] PCP - General INTERNAL MEDICINE 09/18/23
== END 2024-10-06 09:42 | disposition home or self-care (01) ==
PROVIDERS: PCP Internal Medicine; Visit Provider Urology
DX: N13.1 Hydronephrosis with ureteral stricture, not elsewhere classified (principal); N20.0 Calculus of kidney
CPT/HCPCS: 74176

== ENCOUNTER 2024-10-07 02:05 | Day surgery (SDC) | payer BC, OTHER, SELFPAY ==
--- NOTE | 2024-10-06 14:04 | SUR.PREOP ---
Report to the Outpatient Waiting Room, entrance under the green pavilion located off [facility], at time ___1100____ on date __10/07/24 . Planned Procedure Time: __1300 .? Time changes happen often and if your time is changed the preop area will call you the afternoon before. - You and your visitor will be asked to self-screen and do not enter if you have any COVID symptoms. Please call surgeon if you need to reschedule. - A mask is optional within the hospital at this time. Patients may have clear liquids (water, carbonated beverages, clear teas, apple juice) until 3 hours prior to surgery with a maximum of 20 ounces. stop by 10am - No food from midnight until time of surgery and no smoking, or chewing tobacco (or any form of nicotine). No chewing gum, candy or mints. Take only the following medications with a SIP of water on the morning of surgery: take nothing but bring list of current medication DO NOT STOP ANY OF YOUR OTHER PRESCRIPTION MEDICATIONS PRIOR TO SURGERY EXCEPT THE FOLLOWING Hold all vitamins and supplements for 3 days per anesthesiologist. Medications to discontinue per physician ____states provider is aware of current medication that includes aspirin Date to take last dose Please no make-up, nail afghan, hairspray, perfume, deodorant, or body powder the day of surgery.? No jewelry (including any body piercings) or valuables the day of surgery, leave them at home.? Please take a shower or bath the night before, or the morning of, surgery with an antibacterial soap.? Wear comfortable, loose fitting clothing.? Children are encouraged to wear pajamas. - Jewelry must be removed prior to entering the operating room.? Rings and piercings that are not removed may be cut off. - The hospital will not accept responsibility for valuables.? - Please leave all valuables, including medications, at home the day of surgery. If you are going home after surgery, a licensed bicycle taxi driver must drive you home.? - NO public transportation without another adult if you receive anesthesia. - We recommend that an adult stay with you for 24 hours following discharge. - We also recommend that you do not drive, make important decision, drink alcoholic beverages, or take any drugs that were not prescribed by your health care provider for at least 24 hours after your discharge time. Follow any additional instructions given to you from your surgeon. Telephone instructions given to Scott- patient and asked if any additional questions and then verbalized understanding. Patient advised to call surgeon office or pre surgery nurse liaison [phone] if any additional questions.
[2024-10-06 14:11] VITALS: BMI 30.3
[2024-10-07] VITALS (12 sets, daily range): BP systolic 94–131; BP diastolic 52–101; PULSE 78–87; RESP 12–20; TEMP 36.4; O2SAT 92–100
--- NOTE | ~2024-10-07 | XR_ITS ---
EXAMINATION: XR retrograde pyelo w/stent RT DATE: 10/07/2024 11:47 INDICATION: Right internal ureteral stent placement TECHNIQUE: Fluoroscopic images from a right internal ureteral stent placement are submitted for review. of fluoroscopy time. FINDINGS: There is a right double-J internal ureteral stent projecting in expected position, with proximal [place] loop at the level of the renal pelvis and distal loop in the pelvis within the bladder lumen. IMPRESSION: 1. Right internal ureteral stent placement. Please refer to real-time procedural findings for details. Reviewed, dictated and finalized at location A. IMPRESSION: 1. Right internal ureteral stent placement. Please refer to real-time procedu ral findings for details.
--- OUTSIDE RECORDS SUMMARY | 2024-10-07 02:11 | XMS_ITS | Clinical Summary ---
Author Organization [facility] Address [address] [place] [address] Care Team Providers Care Car Rental Clerk Name Role Phone Bulmaro Easton MD Primary Care Provider [phone] Social History Tobacco Use Types Packs/Day Years [...] patient's age to complete this topic Insurance [facility] Care Teams Car Rental Clerk Relationship Specialty [place] [address] [place] [address] PCP - General INTERNAL MEDICINE 09/18/23
--- NOTE | 2024-10-07 06:16 | WPDHPUPDATE1 ---
History and Physical Update Update Date/Time: 10/07/24 06:16 History and Physical has been reviewed, including an updated exam of the patient. There are NO changes in the patient's condition. Risks, benefits, and alternatives have been discussed and questions answered. Patient agrees to proceed with procedure.
--- NOTE | 2024-10-07 09:06 | ECG_ITS ---
Test Date: 2024-10-07 09:55:53 Measurements Intervals [place] Rate: 84 P: 14 CA: 181 QRS: -25 QRSD: 76 T: 0 QT: 330 QTc: 390 Interpretive Statements SINUS RHYTHM INCOMPLETE RIGHT BUNDLE BRANCH BLOCK LOW QRS VOLTAGE IN PRECORDIAL LEADS BASELINE ARTIFACT- I, II, III, AVR, AVL, AVF, V1-V6 BORDERLINE ECG No previous ECG available for comparison Electronically Signed On 10-07-2024 10:03:34 CDT by Jeffrey Sky D.O.
[2024-10-07] MEDS: LACTATED RINGERS 1,000 ML 30 ML IV CONT (10:00)
--- NOTE | 2024-10-07 10:10 | WPDANESEPPF ---
Anes - Initial Pre Proc Eval Procedure: Operation Date: 10/07/24 11:00 Proposed Procedures p Cystoscopy, Bilateral Ureteroscopy, Possible Bilateral Stone Extraction, Possible Holmium Laser Lithotripsy, Possible Bilateral Retrograde Pyelography, Possible Bilateral Stent Placement - Ventura Bacon MD Date/Time: 10/07/24 10:10 Surgeon: Ventura Bacon MD Pre Op Diagnosis: bilateral ureteral stones Patient Data Age: 54 Gender: M Height: 1.8 m Weight: 98.6 kg Allergies Allergy/AdvReac Type Severity Reaction Status Date / Time tramadol Allergy Severe Sweating Verified 10/06/24 14:24 Home Medications ?Medication ?Instructions ?Recorded ?Confirmed ?Type atorvastatin 80 mg tablet 80 mg PO QPM 02/17/24 02/17/24 History clopidogrel 75 mg tablet 75 mg PO DAILY 02/17/24 02/17/24 History ezetimibe 10 mg tablet 10 mg PO DAILY 02/17/24 02/17/24 History metoprolol succinate 50 mg 50 mg PO DAILY 02/17/24 02/17/24 History tablet,extended release 24 hr pantoprazole 40 mg tablet,delayed 40 mg PO DAILY 02/17/24 02/17/24 History release sacubitril 49 mg-valsartan 51 mg 1 tablet PO DAILY 02/17/24 02/17/24 History tablet (Entresto) albuterol sulfate 90 mcg/actuation 2 puff inhalation Q4H PRN 07/26/24 History aerosol inhaler (Ventolin HFA) aspirin 81 mg capsule 81 mg PO DAILY 07/26/24 History Patient hx anesthesia problems: none Family hx anesthesia problems: none Results Review: All pre-operative results and documents have been reviewed as part of the pre-operative evaluation. [facility] Surgical History Surgical History (Updated 07/26/24 @ 15:10 by Carolyn Rosas CMA) History of tonsillectomy (~02/17/79) History of arthroscopic knee surgery (~02/17/94) History of knee surgery (~02/17/94) History of angioplasty (~02/17/19) Social History Social History Smoking packs per day: 1 Smoking cigarettes per day: 20.0 Years smoked: 30 Smoking pack-years: 30.00 Smoking status: Current every day smoker Tobacco type: cigarettes Second hand tobacco smoke exposure: Yes Alcohol intake: never Substance use: never Substance use type: does not use Living arrangements: with family Spiritual care concerns: No Anes - Eval Final PreProcedure Day of Procedure 10/07/24 10:10 Patient weight: obese Heart: regular rate and rhythm Lungs: clear to auscultation Airway: Mallampati scale class II Neurological: alert and oriented Last oral intake: >/= 8 hours ASA classification: III Emergent: no Anesthetic plan: proceed Anesthesia type and monitoring: general LMA and standard monitoring Results Review: All pre-operative results and documents have been reviewed as part of the pre-operative evaluation. Informed Consent: The patient's anesthetic plan and its attendant risks and benefits were discussed with the patient/family/POA. Questions were solicited and answers provided to the satisfaction of the patient/family/POA.
[2024-10-07] MEDS: ceFAZolin 2 GM in SODIUM CHLORIDE 0.9% IV 50 ML 100 ML IVPB (10:47)
[2024-10-07] MEDS: LIDOCAINE 2% GEL UROJET 10 ML PKG MUCOUS MEM (10:57)
--- NOTE | 2024-10-07 11:38 | S_PTH ---
PATIENT: Primitivo Sharma LOC: [facility] U#:[id number] AGE/SX: 54/M ROOM: RE10/07/[address]: Ventura Bacon MD : 1970 BED: DIS: 10/07/2024 SPEC #: [id number] RECD: 10/07/24 12:55 STATUS: GETACHEW REQ #: [id number] DAR: 10/07/24 11:[address]: Ventura Bacon DEPT: [facility] Surgical RECD BY: Michelle Rich ENTERED: 10/07/24 12:55 SP TYPE: Surgical OTHR DR: Bulmaro Easton, Tissues: A - Stone Procedures: Gross Exam Level 1 Crystalline Analysis
--- NOTE | 2024-10-07 12:03 | P.OP_ITS ---
Procedure Note - Detailed Date of Procedure 10/07/24 Pre-op Diagnosis Bilateral ureteral stones Post-op Diagnosis Other (Right ureteral and renal stones) Procedure Performed Cystoscopy, bilateral ureteroscopy, I right retrograde pyelography, right ureteral stone extraction, right ureteral stent placement Surgeon Ventura Bacon MD Anesthesia General Description of Procedure Patient is brought the op suite where he was prepped draped in routine sterile fashion while in dorsal lithotomy position after the uneventful induction of a general LMA anesthetic. Cystoscopy was undertaken with a 19 F rigid cystoscope. He has negligible prostatic hyperplasia and no urethral stricture. The bladder was endoscopically normal without foreign body or neoplasm. Bladder mucosa is without hyperemia. He has a single orthotopic ureteral orifice bilaterally. I 1st placed a 0.035 in glidewire to his left renal pelvis and dilated the distal ureter with an 8 F 10 F dilator. Left ureteroscopy with a short tapered semi- rigid ureteral scope fails to show any left ureteral stones. A 0.035 in glidewire was advanced into his right renal pelvis. Distal ureter was dilated with an 8 F 10 F dilator. I tried reaching his mid ureteral stone with the rigid ureteral scope without success. I placed a safety wire at that point and an 11 F/13 F ureteral access sheath. Flexible ureteroscopy was undertaken with a 7.5 F flexible ureteral scope. The mid ureteral stone washed back into his kidney. I was able to extracted intact without need for lithotripsy. I then repeated ureteroscopy twice was to retrieve the smaller renal stones. Due to the extent of this manipulation I did place a 4.8 F right double-J ureteral stent. Scopes and wires removed he was taken to the recovery room in good condition Drains Yes Pathology Yes Complications No immediate complications Condition Stable
[2024-10-07] MEDS: fentaNYL CITRATE INJ (*CRX) 100 MCG/2 ML VIAL 25 MCG IV PUSH ×4 (12:41→12:51)
--- NOTE | 2024-10-07 13:08 | SUR.PHASEI ---
patient states pain is mostly pressure, feels he has to urinate and have a bowel movement. educated patient on side effects of ureteral stent, gave 100mcg fentanyl with no relief. patient insistent that he wants to try to have a bowel movement and thinks that will relieve pain. will transfer to outpatient recovery in order to use restroom. educated patient on available pain pill in outpatient recovery.
--- NOTE | 2024-10-07 13:41 | SUR.PHASEII ---
ARRIVED TO AREA AND PER REQUEST TAKEN DIRECTLY TO BATHROOM AND WAS IN THERE FOR 20 MINUTES KEPT CHECKING ON HIM AND HE SAID HE SAID HE WAS FINE
[2024-10-07] MEDS: oxyCODONE HCL (*CRX) 5 MG TAB IR PO (13:46)
[2024-10-07] MEDS: HYOSCYAMINE SULFATE 0.125 MG TABLET PO (13:47)
[2024-10-07] MEDS: KETOROLAC 15 MG/ML VIAL (*BKC) IV PUSH ×2 (13:51→14:20)
--- NOTE | 2024-10-07 13:59 | SUR.PHASEII ---
Patient having uncontrolled pain. Dr. Bacon notified and PO Levsin ordered. Dr. Rodriguez from anesthesia also notified and IV toradol ordered for patient. Both given (see MAR). Patient resting in recliner. Patient's at bedside.
[2024-10-07] MEDS: TAMSULOSIN HCL 0.4 MG CAPSULE PO (14:39)
== END 2024-10-07 15:15 | disposition home or self-care (01) ==
PROVIDERS: PCP Internal Medicine; Visit Provider Urology
PROC: (CPT 52352; principal; 2024-10-07 11:00)
DX: N20.0 Calculus of kidney (principal); F17.210 Nicotine dependence, cigarettes, uncomplicated; R01.1 Cardiac murmur, unspecified; I10 Essential (primary) hypertension; E78.00 Pure hypercholesterolemia, unspecified; I25.2 Old myocardial infarction; F32.A Depression, unspecified; I45.10 Unspecified right bundle-branch block; E66.9 Obesity, unspecified; Z68.29 Body mass index [BMI] 29.0-29.9, adult; Z79.82 Long term (current) use of aspirin; Z79.51 Long term (current) use of inhaled steroids; Z79.02 Long term (current) use of antithrombotics/antiplatelets; Z98.890 Other specified postprocedural states; Z90.49 Acquired absence of other specified parts of digestive tract; Z86.79 Personal history of other diseases of the circulatory system
CPT/HCPCS: 52352; 52332; 74420; 82365; 88300; 93005; J0690; A9270; C1769; C1894; C2617; J1885; J2405; J2704; J3010; J7120; Q9966